=== PATIENT | male | born 1965 | race Caucasian/White ===

== ENCOUNTER 2021-01-23 17:55 | Emergency (ER) | payer OTHER ==
[2021-01-23] MEDS ORDERED: Ibuprofen 400 MG TAB ONE (19:45)
== END 2021-01-23 19:49 | disposition home or self-care (01) ==
LOC: MADERS 17:55
DX: S39.012A Strain of muscle, fascia and tendon of lower back, initial encounter (principal); S16.1XXA Strain of muscle, fascia and tendon at neck level, initial encounter; R51.9 Headache, unspecified; F17.210 Nicotine dependence, cigarettes, uncomplicated; V43.52XA Car driver injured in collision with other type car in traffic accident, initial encounter
CPT/HCPCS: 70450; 72100; 72125